=== PATIENT | male | born 1965 | race Caucasian/White ===

== ENCOUNTER 2018-12-10 17:49 | Emergency (ER) | payer OTHER, SELFPAY | END 2018-12-10 18:50 | disposition home or self-care (01) | LOC: ERS 17:49 | DX: H00.011 Hordeolum externum right upper eyelid (principal); I10 Essential (primary) hypertension; F17.220 Nicotine dependence, chewing tobacco, uncomplicated; Z79.82 Long term (current) use of aspirin | CPT/HCPCS: 99283 ==

== ENCOUNTER 2020-02-01 12:35 | Emergency (ER) | payer SELFPAY ==
[2020-02-01] MEDS ORDERED: Fluorescein Opthalmic Strip ONE (13:10)
[2020-02-01] MEDS ORDERED: Proparacaine 0.5% Opth 15 ML BOT ONE (13:10)
== END 2020-02-01 14:09 | disposition home or self-care (01) ==
LOC: ERS 12:35
DX: H01.006 Unspecified blepharitis left eye, unspecified eyelid (principal); H01.003 Unspecified blepharitis right eye, unspecified eyelid; H10.9 Unspecified conjunctivitis; I10 Essential (primary) hypertension; F17.220 Nicotine dependence, chewing tobacco, uncomplicated
CPT/HCPCS: 99283